=== PATIENT | male | born 1990 | race Caucasian/White ===

== ENCOUNTER 2017-02-05 06:17 | Emergency (ER) | payer OTHER ==
[2017-02-05 06:49] VITALS: TEMP 98.6
[2017-02-05] MEDS ORDERED: RX INFO: IV CONTRAST WAS GIVEN 1 EACH MISC MISCELLANE PRN (08:26)
--- NOTE | 2017-02-05 09:00 | ED ---
Abdominal Pain HPI - General Chief Complaint: Abdominal Pain Stated Complaint: pelvic, leg pain/numbness Time Seen by Provider: 02/05/17 08:08 Source: patient, RN notes reviewed Mode of arrival: ambulatory Limitations: no limitations - History of Present Illness Initial Comments: 26-year-old male presents emergency Department chief complaint of abdominal pain. Patient had ongoing sore last year diagnosed with colitis. Patient states that he does see a GI physician in [place] because he was going to school at [employer]. Patient states that he is scheduled for colonoscopy and upper GI scope but is not for another 2 months. Patient's concerned about increasing symptoms. Patient has had hematuria in the past when his symptoms first started no recent episodes. Patient denies any vomiting states he is nauseated. Denies any dysuria or urinary frequency. Patient has fever, chills , chest pain or shortness breath. Patient states that he does have multiple family members diagnosed with colitis, ulcerative colitis and colon cancer. Patient is concerned. - Related Data Home Medications Medication Instructions Recorded Confirmed Ibuprofen [Advil] 600 mg PO DAILY PRN 02/05/17 02/05/17 Indomethacin 25 mg PO TID PRN 02/05/17 02/05/17 Multivitamins, Thera [Multivitamin 1 tab PO DAILY 02/05/17 02/05/17 (formulary)] Previous Rx's Medication Instructions Recorded Acetaminophen-Codeine 300-30mg 1 tab PO Q4H PRN #20 tablet 02/05/17 [Tylenol #3] Dicyclomine [Bentyl] 20 mg PO TID #30 tablet 02/05/17 Allergies Allergy/AdvReac Type Severity Reaction Status Date / Time No Known Allergies Allergy Verified 02/05/17 07:51 Review of Systems ROS Statement: Those systems with pertinent positive or pertinent negative responses have been documented in the HPI. ROS Other: All systems not noted in ROS Statement are negative. Past Medical History Past Medical History: No Reported History Additional Past Medical History / Comment(s): COLITIS History of Any Multi-Drug Resistant Organisms: None Reported Past Surgical History: No Surgical Hx Reported Past Psychological History: No Psychological Hx Reported Smoking Status: Never smoker Past Alcohol Use History: None Reported Past Drug Use History: None Reported General Exam Limitations: no limitations General appearance: alert, in no apparent distress Neck exam: Present: normal inspection, full ROM. Absent: tenderness, meningismus, lymphadenopathy Respiratory exam: Present: normal lung sounds bilaterally. Absent: respiratory distress, wheezes, rales, rhonchi, stridor Cardiovascular Exam: Present: regular rate, normal rhythm, normal heart sounds. Absent: systolic murmur, diastolic murmur, rubs, gallop, clicks GI/Abdominal exam: Present: soft, tenderness (Mild left lower quadrant tenderness), normal bowel sounds. Absent: distended, guarding, rebound, rigid Back exam: Absent: CVA tenderness (R), CVA tenderness (L) Neurological exam: Present: alert, oriented X3, CN II-XII intact Skin exam: Present: warm, dry, intact, normal color. Absent: rash Course Vital Signs 02/05/17 06:23 Temperature 98.6 F Pulse Rate 56 L Respiratory 16 Rate Blood Pressure 133/58 O2 Sat by Pulse 98 Oximetry Medical Decision Making - Medical Decision Making 26-year-old male present emergency department for abdominal pain. Patient CT is unchanged from prior CT. Patient has evidence of inflammatory changes. Patient will be discharged follow-up with local GI or his GI that's in [place]. Patient we discharged with Bentyl, pain medication return parameters discussed. - Lab Data Result diagrams: 02/05/17 08:22 02/05/17 08:22 Lab Results 02/05/17 02/05/17 02/05/17 Range/Units 08:22 08:22 08:52 WBC 5.5 (3.8-10.6) k/uL RBC 5.23 (4.30-5.90) m/uL Hgb 16.4 (13.0-17.5) gm/dL Hct 46.1 (39.0-53.0) % MCV 88.1 (80.0-100.0) fL MCH 31.4 (25.0-35.0) pg MCHC 35.7 (31.0-37.0) g/dL RDW 12.3 (11.5-15.5) % Plt Count 227 (150-450) k/uL Neutrophils % 42 % Lymphocytes % 34 % Monocytes % 9 % Eosinophils % 10 % Basophils % 1 % Neutrophils # 2.3 (1.3-7.7) k/uL Lymphocytes # 1.9 (1.0-4.8) k/uL Monocytes # 0.5 (0-1.0) k/uL Eosinophils # 0.6 (0-0.7) k/uL Basophils # 0.1 (0-0.2) k/uL Sodium 142 (137-145) mmol/L Potassium 4.1 (3.5-5.1) mmol/L Chloride 105 (98-107) mmol/L Carbon Dioxide 25 (22-30) mmol/L Anion Gap 12 mmol/L BUN 16 (9-20) mg/dL Creatinine 1.07 (0.66-1.25) mg/dL Est GFR (MDRD) Af Amer >60 (>60 ml/min/1.73 sqM) Est GFR (MDRD) Non-Af >60 (>60 ml/min/1.73 sqM) Glucose 87 (74-99) mg/dL Calcium 9.9 (8.4-10.2) mg/dL Total Bilirubin 1.5 H (0.2-1.3) mg/dL AST 20 (17-59) U/L ALT 33 (21-72) U/L Alkaline Phosphatase 64 (38-126) U/L Total Protein 7.3 (6.3-8.2) g/dL Albumin 4.6 (3.5-5.0) g/dL Amylase 78 (30-110) U/L Lipase 100 (23-300) U/L Urine Color Yellow Urine Appearance Clear (Clear) Urine pH 6.5 (5.0-8.0) Ur Specific [place] 1.012 (1.001-1.035) Urine Protein Negative (Negative) Urine Glucose (UA) Negative (Negative) Urine Ketones Negative (Negative) Urine Blood Negative (Negative) Urine Nitrite Negative (Negative) Urine Bilirubin Negative (Negative) Urine Urobilinogen <2.0 (<2.0) mg/dL Ur Leukocyte Esterase Negative (Negative) Disposition Clinical Impression: Abdominal pain, Colitis Disposition: HOME SELF-CARE Condition: Stable Instructions: Abdominal Pain (ED) Additional Instructions: Please return to the Emergency Department if symptoms worsen or any other concerns. Prescriptions: Acetaminophen-Codeine 300-30mg [Tylenol #3] 1 tab PO Q4H PRN #20 tablet PRN Reason: pain Dicyclomine [Bentyl] 20 mg PO TID #30 tablet Referrals: None,Stated [Primary Care Provider] - 1-2 days Wilma Reynoso MD [STAFF PHYSICIAN] - 1-2 days
[2017-02-05 09:02] LABS: Basophils # (A) 0.1 k/uL (0-0.2); Basophils % (A) 1 %; CH 32.3; CHCM 36.8; Eosinophils # (A) 0.6 k/uL (0-0.7); Eosinophils % (A) 10 %; HCT 46.1 % (39.0-53.0); HDW 2.74; HGB 16.4 gm/dL (13.0-17.5); Luc # (Auto) 0.17; Luc % (Auto) 3; Lymphocytes # (A) 1.9 k/uL (1.0-4.8); Lymphocytes % (A) 34 %; MCH 31.4 pg (25.0-35.0); MCHC 35.7 g/dL (31.0-37.0); MCV 88.1 fL (80.0-100.0); Mean Platelet Volume 7.2; Monocytes # (A) 0.5 k/uL (0-1.0); Monocytes % (A) 9 %; Neutrophils # (A) 2.3 k/uL (1.3-7.7); Neutrophils % (A) 42 %; RBC 5.23 m/uL (4.30-5.90); RDW 12.3 % (11.5-15.5); WBC 5.5 k/uL (3.8-10.6)
[2017-02-05 09:07] LABS: Appearance,Urine Clear (Clear); Bilirubin,Urine Negative (Negative); Glucose,Urine (UA) Negative (Negative); Ketones,Urine Negative (Negative); Leukocyte Esterase,Urine Negative (Negative); Nitrite,Urine Negative (Negative); PH, Urine 6.5 (5.0-8.0); Protein,Urine Negative (Negative); Specific Gravity,Urine 1.012 (1.001-1.035); UA Billing (MACRO vs. MICRO) CHEM; Urobilinogen,Urine <2.0 mg/dL (<2.0)
[2017-02-05 09:13] LABS: ALT 33 U/L (21-72); AST 20 U/L (17-59); Alkaline Phosphatase 64 U/L (38-126); Amylase 78 U/L (30-110); Anion Gap 12 mmol/L; Blood Urea Nitrogen 16 mg/dL (9-20); Calcium 9.9 mg/dL (8.4-10.2); Carbon Dioxide 25 mmol/L (22-30); Chloride 105 mmol/L (98-107); Glucose 87 mg/dL (74-99); Non-African American GFR(MDRD) >60 (>60 ml/min/1.73 sqM); Potassium 4.1 mmol/L (3.5-5.1); Sodium 142 mmol/L (137-145); Total Bilirubin 1.5 mg/dL (0.2-1.3); Total Protein 7.3 g/dL (6.3-8.2)
--- NOTE | 2017-02-05 10:00 | CT ---
EXAMINATION TYPE: CT abdomen pelvis w con DATE OF EXAM: 02/05/2017 9:23 AM COMPARISON: 08/18/2016 HISTORY: 86-year-old male with pelvic pain, Leg numbness TECHNIQUE: Contiguous axial scanning of the abdomen and pelvis following administration of 100 ml Omn ipaque 300 IV contrast. Delayed images through the kidneys and coronal/sagittal reconstructions perf ormed. CT DLP: 525.00 mGycm Automated exposure control for dose reduction was used. FINDINGS: The heart is normal size without pericardial effusion. Lung bases are clear without pleural effusion. Small amount of focal fat along the anterior falciform ligament. Portal venous system is patent. No b iliary ductal dilatation. Gallbladder, adrenal glands, kidneys, spleen, and pancreas appear within normal limits. Tiny fatty umbilical hernia. Scattered nonenlarged and a few portal and mildly enlarged mesenteric lymph nodes are present measuri ng up to 9 mm, coronal image 28 and are unchanged from 08/18/2016. There is scattered mild to moderate stool without pericolonic inflammatory change. No dilated small bowel, free fluid, or free air. Portions of a normal air-filled appendix are visuali zed Bladder is underdistended. No abnormal fluid collection in the pelvis and no pelvic lymphadenopathy s een. Bones: Mild superior femoral head neck junction osseous excrescences with some fibrocystic change at the superior femoral head neck junction on the right. No osseous destructive process. IMPRESSION: 1. NO ACUTE INFLAMMATORY PROCESS IDENTIFIED IN THE ABDOMEN OR PELVIS TO EXPLAIN THE PATIENT'S SYMPTOM S. 2. SOME SCATTERED NONENLARGED AND BORDERLINE TO MILDLY ENLARGED MESENTERIC LYMPH NODES ARE UNCHANGED FROM 08/18/2016 SUGGESTING A CHRONIC POSTINFLAMMATORY ETIOLOGY. 3. 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 CORRELATE FOR ANY CHRONIC RIGHT HIP PAIN.
[2017-02-05 10:50] VITALS: BP 113/69; PULSE 62; RESP 18
== END 2017-02-05 10:50 | disposition home or self-care (01) ==
LOC: EC 06:17
DX: K52.9 Noninfective gastroenteritis and colitis, unspecified (principal); Z79.899 Other long term (current) drug therapy; Z83.79 Family history of other diseases of the digestive system
CPT/HCPCS: 36415; 80053; 82150; 83690; 85025; 81003; 74177; 99284; Q9967

== ENCOUNTER 2017-02-14 22:38 | Emergency (ER) | payer OTHER ==
[2017-02-14 22:56] VITALS: TEMP 98
--- NOTE | 2017-02-14 23:50 | ED ---
Abdominal Pain HPI - General Chief Complaint: Abdominal Pain Stated Complaint: Abd Pain Time Seen by Provider: 02/14/17 23:21 Source: patient Mode of arrival: ambulatory Limitations: no limitations - History of Present Illness Initial Comments: Plan about abdominal pain some blood in stool and moves his bowels every 5-6 days complaining about abdominal pain in different parts of the abdomen mostly starts from the right side of the abdomen and it sometimes moves to the left lower quadrant. Been feeling quite tired for the last one month seen a GI doctor in [place] and he is scheduled for a scope in March sometime. He was seen in the [facility], he had a CT of the abdomen done and he stating he do not want another CT of the abdomen and though he passed out today in his driveway for about 2 minutes he denies any injury he passed out when he parked his car there was no car accident or U didn't fall there is no injury and he also made it very clear that she do not want to have a head CT done. System is positive for chills chest pain off-and-on - Related Data Home Medications Medication Instructions Recorded Confirmed Ibuprofen [Advil] 600 mg PO DAILY PRN 02/05/17 02/05/17 Indomethacin 25 mg PO TID PRN 02/05/17 02/05/17 Multivitamins, Thera [Multivitamin 1 tab PO DAILY 02/05/17 02/05/17 (formulary)] Previous Rx's Medication Instructions Recorded Acetaminophen-Codeine 300-30mg 1 tab PO Q4H PRN #20 tablet 02/05/17 [Tylenol #3] Dicyclomine [Bentyl] 20 mg PO TID #30 tablet 02/05/17 Allergies Allergy/AdvReac Type Severity Reaction Status Date / Time No Known Allergies Allergy Verified 02/14/17 22:56 Review of Systems ROS Statement: Those systems with pertinent positive or pertinent negative responses have been documented in the HPI. ROS Other: All systems not noted in ROS Statement are negative. Past Medical History Past Medical History: No Reported History Additional Past Medical History / Comment(s): COLITIS History of Any Multi-Drug Resistant Organisms: None Reported Past Surgical History: No Surgical Hx Reported Past Psychological History: No Psychological Hx Reported Smoking Status: Never smoker Past Alcohol Use History: None Reported Past Drug Use History: None Reported General Exam - General Exam Comments Initial Comments: General: The patient is awake and alert, in no distress, and does not appear acutely ill. Skin: Skin is warm and dry and no rashes or lesions are noted. Eye: Pupils are equal, round and reactive to light, extra-ocular movements are intact; there is normal conjunctiva bilaterally. Ears, nose, mouth and throat: There are moist mucous membranes and no oral lesions. Neck: The neck is supple, there is no tenderness Cardiovascular: There is a regular rate and rhythm. No murmur, rub or gallop is appreciated. Respiratory: To auscultation bilateral, no wheezing no rhonchi no distress respiratory alanis noticed Gastrointestinal: Slightly tender in the right lower quadrant area positive bowel sounds also tender in the left lower quadrant area no guarding no rebounds Back: There is no tenderness to palpation in the midline. There is no obvious deformity. Musculoskeletal: Normal ROM, no tenderness, There is no pedal edema. There is no calf tenderness or swelling. No cords were appreciated. Neurological: CN II-XII intact, Cranial nerves III through XII are intact. There are no obvious motor or sensory deficits. Coordination appears grossly intact. Speech is normal. Psychiatric: Cooperative, appropriate mood & affect, normal judgment. Limitations: no limitations Course Vital Signs 02/14/17 22:52 Temperature 98 F Pulse Rate 71 Respiratory 16 Rate Blood Pressure 140/74 O2 Sat by Pulse 98 Oximetry As well as chest pain is concerned his troponin is normal chest x-ray is normal and the we watched him there was no syncope his GCS is 15 there is no neuro deficits he do not want to do any imaging of his brain or his abdomen like CT of the brain her CT of the abdomen today encouraged him to come back if symptoms get worse or recur Medical Decision Making - Medical Decision Making Patient was in by her GI doctor and [facility] and he plans to get his scopes upper and lower scopes there, his blood work looks exceptionally good today CBC, CMP, UA and the x-rays are within normal range I explained those to him he understands that continued follow-up with her GI doctor - Lab Data Result diagrams: 02/14/17 23:50 02/14/17 23:50 Lab Results 02/14/17 02/14/17 02/14/17 Range/Units 23:50 23:50 23:50 WBC 8.8 (3.8-10.6) k/uL RBC 5.14 (4.30-5.90) m/uL Hgb 16.0 (13.0-17.5) gm/dL Hct 45.8 (39.0-53.0) % MCV 89.2 (80.0-100.0) fL MCH 31.1 (25.0-35.0) pg MCHC 34.9 (31.0-37.0) g/dL RDW 12.3 (11.5-15.5) % Plt Count 224 (150-450) k/uL Neutrophils % 55 % Lymphocytes % 28 % Monocytes % 8 % Eosinophils % 6 % Basophils % 1 % Neutrophils # 4.9 (1.3-7.7) k/uL Lymphocytes # 2.4 (1.0-4.8) k/uL Monocytes # 0.7 (0-1.0) k/uL Eosinophils # 0.5 (0-0.7) k/uL Basophils # 0.1 (0-0.2) k/uL Sodium 142 (137-145) mmol/L Potassium 4.2 (3.5-5.1) mmol/L Chloride 106 (98-107) mmol/L Carbon Dioxide 25 (22-30) mmol/L Anion Gap 11 mmol/L BUN 20 (9-20) mg/dL Creatinine 1.10 (0.66-1.25) mg/dL Est GFR (MDRD) Af Amer >60 (>60 ml/min/1.73 sqM) Est GFR (MDRD) Non-Af >60 (>60 ml/min/1.73 sqM) Glucose 86 (74-99) mg/dL Calcium 10.3 H (8.4-10.2) mg/dL Total Bilirubin 0.6 (0.2-1.3) mg/dL AST 21 (17-59) U/L ALT 43 (21-72) U/L Alkaline Phosphatase 77 (38-126) U/L Troponin I <0.012 (0.000-0.034) ng/mL C-Reactive Protein <5.0 (<10.0) mg/L Total Protein 7.3 (6.3-8.2) g/dL Albumin 4.7 (3.5-5.0) g/dL Amylase 81 (30-110) U/L Lipase 196 (23-300) U/L Urine Color Urine Appearance (Clear) Urine pH (5.0-8.0) Ur Specific [place] (1.001-1.035) Urine Protein (Negative) Urine Glucose (UA) (Negative) Urine Ketones (Negative) Urine Blood (Negative) Urine Nitrite (Negative) Urine Bilirubin (Negative) Urine Urobilinogen (<2.0) mg/dL Ur Leukocyte Esterase (Negative) 02/15/17 Range/Units 01:15 WBC (3.8-10.6) k/uL RBC (4.30-5.90) m/uL Hgb (13.0-17.5) gm/dL Hct (39.0-53.0) % MCV (80.0-100.0) fL MCH (25.0-35.0) pg MCHC (31.0-37.0) g/dL RDW (11.5-15.5) % Plt Count (150-450) k/uL Neutrophils % % Lymphocytes % % Monocytes % % Eosinophils % % Basophils % % Neutrophils # (1.3-7.7) k/uL Lymphocytes # (1.0-4.8) k/uL Monocytes # (0-1.0) k/uL Eosinophils # (0-0.7) k/uL Basophils # (0-0.2) k/uL Sodium (137-145) mmol/L Potassium (3.5-5.1) mmol/L Chloride (98-107) mmol/L Carbon Dioxide (22-30) mmol/L Anion Gap mmol/L BUN (9-20) mg/dL Creatinine (0.66-1.25) mg/dL Est GFR (MDRD) Af Amer (>60 ml/min/1.73 sqM) Est GFR (MDRD) Non-Af (>60 ml/min/1.73 sqM) Glucose (74-99) mg/dL Calcium (8.4-10.2) mg/dL Total Bilirubin (0.2-1.3) mg/dL AST (17-59) U/L ALT (21-72) U/L Alkaline Phosphatase (38-126) U/L Troponin I (0.000-0.034) ng/mL C-Reactive Protein (<10.0) mg/L Total Protein (6.3-8.2) g/dL Albumin (3.5-5.0) g/dL Amylase (30-110) U/L Lipase (23-300) U/L Urine Color Yellow Urine Appearance Clear (Clear) Urine pH 6.5 (5.0-8.0) Ur Specific [place] 1.017 (1.001-1.035) Urine Protein Negative (Negative) Urine Glucose (UA) Negative (Negative) Urine Ketones Negative (Negative) Urine Blood Negative (Negative) Urine Nitrite Negative (Negative) Urine Bilirubin Negative (Negative) Urine Urobilinogen <2.0 (<2.0) mg/dL Ur Leukocyte Esterase Negative (Negative) Disposition Clinical Impression: Abdominal pain, Syncope, Chest pain Disposition: HOME SELF-CARE Condition: Good Instructions: Abdominal Pain (ED) Additional Instructions: Was advised to increase the fluid intake and make sure he doesn't miss any meals to avoid any hypoglycemia or hypovolemia. He understood Referrals: Nonstaff,Physician [Primary Care Provider] - 1-2 days
[2017-02-15 00:07] LABS: Basophils # (A) 0.1 k/uL (0-0.2); Basophils % (A) 1 %; CH 32.3; CHCM 36.4; Eosinophils # (A) 0.5 k/uL (0-0.7); Eosinophils % (A) 6 %; HCT 45.8 % (39.0-53.0); HDW 2.64; Luc # (Auto) 0.18; Luc % (Auto) 2; Lymphocytes # (A) 2.4 k/uL (1.0-4.8); Lymphocytes % (A) 28 %; MCH 31.1 pg (25.0-35.0); MCHC 34.9 g/dL (31.0-37.0); MCV 89.2 fL (80.0-100.0); Mean Platelet Volume 7.6; Monocytes # (A) 0.7 k/uL (0-1.0); Monocytes % (A) 8 %; Neutrophils # (A) 4.9 k/uL (1.3-7.7); Neutrophils % (A) 55 %; RBC 5.14 m/uL (4.30-5.90); RDW 12.3 % (11.5-15.5); WBC 8.8 k/uL (3.8-10.6); WBC (Perox) 8.33
[2017-02-15 00:18] LABS: ALT 43 U/L (21-72); AST 21 U/L (17-59); Alkaline Phosphatase 77 U/L (38-126); Amylase 81 U/L (30-110); Anion Gap 11 mmol/L; Blood Urea Nitrogen 20 mg/dL (9-20); C Reactive Protein <5.0 mg/L (<10.0); Calcium 10.3 mg/dL (8.4-10.2); Carbon Dioxide 25 mmol/L (22-30); Chloride 106 mmol/L (98-107); Glucose 86 mg/dL (74-99); Non-African American GFR(MDRD) >60 (>60 ml/min/1.73 sqM); Potassium 4.2 mmol/L (3.5-5.1); Sodium 142 mmol/L (137-145); Total Bilirubin 0.6 mg/dL (0.2-1.3); Total Protein 7.3 g/dL (6.3-8.2)
--- NOTE | 2017-02-15 00:32 | XR ---
EXAM: XR Chest, 2 Views CLINICAL HISTORY: syncopal episode today, Pain TECHNIQUE: Frontal and lateral views of the chest. COMPARISON: CT abdomen and pelvis from 02/05/17 FINDINGS: Lungs: Unremarkable. No consolidation. Pleural space: Unremarkable. No pneumothorax. Heart: Unremarkable. No cardiomegaly. Mediastinum: Unremarkable. Bones/joints: Unremarkable. IMPRESSION: Normal chest x-rays.
--- NOTE | 2017-02-15 00:33 | XR ---
EXAM: XR Abdomen, 1 View CLINICAL HISTORY: Reason: abdominal pain TECHNIQUE: Frontal supine view of the abdomen/pelvis. COMPARISON: CT abdomen and pelvis from 02/05/17 FINDINGS: Gastrointestinal tract: Unremarkable. No dilation. Bones/joints: Unremarkable. IMPRESSION: Nonspecific bowel gas pattern
[2017-02-15 01:35] LABS: Appearance,Urine Clear (Clear); Bilirubin,Urine Negative (Negative); Glucose,Urine (UA) Negative (Negative); Ketones,Urine Negative (Negative); Leukocyte Esterase,Urine Negative (Negative); Nitrite,Urine Negative (Negative); PH, Urine 6.5 (5.0-8.0); Protein,Urine Negative (Negative); Specific Gravity,Urine 1.017 (1.001-1.035); UA Billing (MACRO vs. MICRO) CHEM; Urobilinogen,Urine <2.0 mg/dL (<2.0)
[2017-02-15 02:51] VITALS: BP 122/65; PULSE 77; RESP 18
== END 2017-02-15 02:51 | disposition home or self-care (01) ==
LOC: EC 22:38
DX: R10.31 Right lower quadrant pain (principal); R10.32 Left lower quadrant pain; R55 Syncope and collapse; R07.9 Chest pain, unspecified; Z87.19 Personal history of other diseases of the digestive system; Z79.899 Other long term (current) drug therapy
CPT/HCPCS: 36415; 71020; 74000; 80053; 81003; 82150; 83690; 84484; 85025; 86140; 99284

== ENCOUNTER 2017-03-24 12:14 | Day surgery (SDC) | payer OTHER ==
[2017-03-24] MEDS ORDERED: LIDOCAINE 1% 20 ML VIAL (10MG/ML) FOR IV START INTRADERMA ONE (12:46)
[2017-03-24] MEDS ORDERED: LACTATED RINGERS 1,000 ML IV ONE (12:47)
[2017-03-24 12:48] VITALS: RESP 16; TEMP 97
[2017-03-24] MEDS ORDERED: PROPOFOL 10 MG/ML 20 ML VIAL IV ONE (12:50)
[2017-03-24] MEDS ORDERED: LIDOCAINE 1% INJ 10MG/ML (20 ML MDV) ONE (12:50)
[2017-03-24] MEDS ORDERED: LACTATED RINGERS 1,000 ML IV SCH (12:54)
--- NOTE | 2017-03-24 12:57 | P.GSHP ---
History of Present Illness H&P Date: 03/24/17 Chief Complaint: GI bleed The 26-year-old male who's had complaints of epigastric dull pain and GI bleed. He presents today for EGD. Past Medical History Past Medical History: No Reported History Additional Past Medical History / Comment(s): COLITIS History of Any Multi-Drug Resistant Organisms: None Reported Past Surgical History: No Surgical Hx Reported Past Psychological History: No Psychological Hx Reported Smoking Status: Never smoker Past Alcohol Use History: None Reported Past Drug Use History: None Reported Medications and Allergies Home Medications Medication Instructions Recorded Confirmed Type Ibuprofen [Advil] 600 mg PO DAILY PRN 02/05/17 03/24/17 History Indomethacin 25 mg PO TID PRN 02/05/17 03/24/17 History Multivitamins, Thera [Multivitamin 1 tab PO DAILY 02/05/17 03/24/17 History (formulary)] Allergies Allergy/AdvReac Type Severity Reaction Status Date / Time No Known Allergies Allergy Verified 02/14/17 22:56 Surgical - Exam Vital Signs Temp Pulse Resp BP Pulse Ox 97 F L 57 L 16 126/73 57 L 03/24/17 12:44 03/24/17 12:44 03/24/17 12:44 03/24/17 12:44 03/24/17 12:44 - General well developed, no distress - Eyes PERRL - ENT normal pinna - Neck no masses - Respiratory normal expansion - Cardiovascular Rhythm: regular - Abdomen Abdomen: soft, non tender Assessment and Plan Plan: Epigastric dull pain, GI bleed. We'll perform EGD.
--- NOTE | 2017-03-24 13:06 | P.OP ---
Date of Procedure: 03/24/17 Preoperative Diagnosis: Epigastric abdominal pain Postoperative Diagnosis: Mild antral gastritis Small hiatal hernia Minimal esophagitis Procedure(s) Performed: EGD Implants: Anesthesia: MAC Surgeon: Holden Sepulveda Pathology: other (Antrum, esophagus) Condition: stable Disposition: PACU Indications for Procedure: Operative Findings: Description of Procedure: The patient's placed on the endoscopy table lateral position. He received IV sedation. The gastroscope placed oropharynx passed in the esophagus and into the stomach. The scope was then placed through the pylorus. First and second portion of the duodenum appeared normal. Scope was then brought back and the antrum and this appeared mildly inflamed. A biopsies was performed. Scope was then brought back and the stomach and the remainder some appeared normal. Scope was unretroflexed and remainder stomach was normal. There was a small hiatal hernia seen. The GE junction was at 40 cms. The distal esophagus appeared minimally inflamed a biopsies performed. The proximal esophagus Appeared Normal. Scope was withdrawn for patient.
[2017-03-24 13:42] VITALS: BP 113/69; PULSE 55
== END 2017-03-24 14:57 | disposition home or self-care (01) ==
LOC: ORWHC2ENDO 12:14
PROVIDERS: ATTEND Surgery
DX: K29.50 Unspecified chronic gastritis without bleeding (principal); K20.9 Esophagitis, unspecified; K44.9 Diaphragmatic hernia without obstruction or gangrene; Z87.19 Personal history of other diseases of the digestive system; Z79.899 Other long term (current) drug therapy
CPT/HCPCS: 88305; 88342; 43239; J2001; J2704

== ENCOUNTER → 2017-03-25 | Outpatient (CLI) | payer OTHER ==
--- NOTE | 2017-03-25 11:09 | FL ---
EXAMINATION TYPE: FL small bowel follow through , DATE OF EXAM ORDERED: 03/25/2017 HISTORY: R10.30 lower abdominal pain. COMPARISON: None. FINDINGS: A solution coordinator film was unremarkable. Small bowel caliber is normal mucosal frontal fold pattern is normal. The terminal ileum was spotted and is unremarkable. IMPRESSION: NORMAL DEDICATED SMALL BOWEL FOLLOW-THROUGH.
== END | disposition home or self-care (01) ==
LOC: RADFLMAIN 08:04
PROVIDERS: ATTEND Internal Medicine Gastroenterology
DX: R10.30 Lower abdominal pain, unspecified (principal)
CPT/HCPCS: 74250

== ENCOUNTER 2017-04-16 15:11 | Emergency (ER) | payer OTHER ==
[2017-04-16 15:43] VITALS: TEMP 97.9
[2017-04-16] MEDS ORDERED: ACET/COD 300 MG/30 MG STARTER PACK 6 TAB BTL PO STA (16:58)
[2017-04-16] MEDS ORDERED: CYCLOBENZAPRINE 10MG STARTER 3 TAB BTL PO STA (16:58)
--- NOTE | 2017-04-16 17:14 | XR ---
EXAMINATION TYPE: XR lumbar spine 2 or 3V DATE OF EXAM: 04/16/2017 COMPARISON: NONE HISTORY: Back pain TECHNIQUE: 3 views FINDINGS: Lumbar vertebra have normal spacing and alignment. Posterior elements are intact. Sacroilia c joints appear normal. IMPRESSION: Negative lumbar spine exam. No fracture.
--- NOTE | 2017-04-16 17:30 | ED ---
Back Pain HPI - General Chief Complaint: Back Pain/Injury Stated Complaint: Back Injury Time Seen by Provider: 04/16/17 16:52 Source: patient Limitations: no limitations - Related Data Home Medications Medication Instructions Recorded Confirmed Ibuprofen [Advil] 600 mg PO DAILY PRN 02/05/17 03/24/17 Indomethacin 25 mg PO TID PRN 02/05/17 03/24/17 Multivitamins, Thera [Multivitamin 1 tab PO DAILY 02/05/17 03/24/17 (formulary)] Previous Rx's Medication Instructions Recorded Acetaminophen-Codeine 300-30mg 1 tab PO Q4H PRN #20 tablet 02/05/17 [Tylenol #3] Dicyclomine [Bentyl] 20 mg PO TID #30 tablet 02/05/17 Cyclobenzaprine [Flexeril] 10 mg PO TID #20 tab 04/16/17 HYDROcodone/APAP 10-325MG [[place] 1 tab PO Q6H PRN #10 tab 04/16/17 10-325] Allergies Allergy/AdvReac Type Severity Reaction Status Date / Time No Known Allergies Allergy Verified 02/14/17 22:56 Review of Systems ROS Statement: Those systems with pertinent positive or pertinent negative responses have been documented in the HPI. ROS Other: All systems not noted in ROS Statement are negative. Past Medical History Past Medical History: No Reported History Additional Past Medical History / Comment(s): COLITIS History of Any Multi-Drug Resistant Organisms: None Reported Past Surgical History: No Surgical Hx Reported Past Psychological History: No Psychological Hx Reported Smoking Status: Never smoker Past Alcohol Use History: None Reported Past Drug Use History: None Reported General Exam Limitations: no limitations Course Vital Signs 04/16/17 04/16/17 15:41 16:59 Temperature 97.9 F Pulse Rate 60 62 Respiratory 20 18 Rate Blood Pressure 114/69 117/68 O2 Sat by Pulse 96 98 Oximetry Disposition Clinical Impression: Lumbar back pain Disposition: HOME SELF-CARE Condition: Good Instructions: Acute Low Back Pain (ED) Additional Instructions: Patient is to rest, plenty ice to the back. Return to the emergency department if any alarming signs or symptoms occur. Prescriptions: Cyclobenzaprine [Flexeril] 10 mg PO TID #20 tab HYDROcodone/APAP 10-325MG [[place] 10-325] 1 tab PO Q6H PRN #10 tab PRN Reason: Pain Referrals: Tamika Hopper DO [Primary Care Provider] - 1-2 days Time of Disposition: 17:29
[2017-04-16 17:40] VITALS: BP 128/70; PULSE 69; RESP 16
== END 2017-04-16 17:38 | disposition home or self-care (01) ==
LOC: EC 15:11
DX: M54.5 Low back pain (principal); Z79.899 Other long term (current) drug therapy
CPT/HCPCS: 72100; 99283

== ENCOUNTER 2017-09-27 19:48 | Emergency (ER) | payer OTHER ==
[2017-09-27 20:35] VITALS: BP 117/55; PULSE 69; RESP 18; TEMP 97.7
[2017-09-27] MEDS ORDERED: PROPARACAINE 0.5% OPHTH DROPS 15 ML BTL RIGHT EYE STA (21:51)
--- NOTE | 2017-09-27 22:07 | ED ---
Eye Problem HPI - General Chief complaint: Eye Problems Stated complaint: [facility] /Eye Problem Time Seen by Provider: 09/27/17 21:40 Source: patient, RN notes reviewed Mode of arrival: ambulatory Limitations: no limitations - History of Present Illness Initial comments: This is a 27-year-old male who presents to the emergency department with chief complaint of right eye injury. Patient states that at 7:34 PM this evening he was at work. He states that he had an accidental splash to his right eye of a product inspection supervisor chemical solution. Patient states that he flushed his eye with water for 5 minutes. Patient states that currently his eye is mildly painful; he rates it as 3/10. Denies any vision changes or blurred vision. Denies any other injuries. Denies fever, chills, chest pain, shortness of breath, abdominal pain, nausea or vomiting, constipation or diarrhea, dysuria or hematuria, numbness or tingling, headache. - Related Data Home Medications Medication Instructions Recorded Confirmed Ibuprofen [Advil] 600 mg PO DAILY PRN 02/05/17 03/24/17 Indomethacin 25 mg PO TID PRN 02/05/17 03/24/17 Multivitamins, Thera [Multivitamin 1 tab PO DAILY 02/05/17 03/24/17 (formulary)] Previous Rx's Medication Instructions Recorded Acetaminophen-Codeine 300-30mg 1 tab PO Q4H PRN #20 tablet 02/05/17 [Tylenol #3] Dicyclomine [Bentyl] 20 mg PO TID #30 tablet 02/05/17 Cyclobenzaprine [Flexeril] 10 mg PO TID #20 tab 04/16/17 HYDROcodone/APAP 10-325MG [[place] 1 tab PO Q6H PRN #10 tab 04/16/17 10-325] Allergies Allergy/AdvReac Type Severity Reaction Status Date / Time No Known Allergies Allergy Verified 09/27/17 20:35 Review of Systems ROS Statement: Those systems with pertinent positive or pertinent negative responses have been documented in the HPI. ROS Other: All systems not noted in ROS Statement are negative. Past Medical History Past Medical History: No Reported History Additional Past Medical History / Comment(s): COLITIS History of Any Multi-Drug Resistant Organisms: None Reported Past Surgical History: No Surgical Hx Reported Past Psychological History: No Psychological Hx Reported Smoking Status: Never smoker Past Alcohol Use History: None Reported Past Drug Use History: None Reported General Exam - General Exam Comments Initial Comments: General: Awake and alert, well-developed; in no apparent distress. HEENT: Head atraumatic, normocephalic. Pupils are equal, round and reactive to light. Extraocular movements intact. On fluorescein staining, there is no evidence of corneal abrasion or ulcer. No evidence of foreign body. Neck: Supple. Normal ROM. Cardiovascular: Regular rate and rhythm. No murmurs, rubs or gallops. Chest symmetrical. Respiratory: Lungs clear to auscultation bilaterally. No wheezes, rales or rhonchi. Normal respiratory effort with no use of accessory muscles. Musculoskeletal: Normal ROM, no tenderness bilateral upper and lower extremities. Ambulating normally. Skin: [place], warm and dry without rashes or lesions. Neurological: Alert and oriented x3. CN II-XII grossly intact. Speech is fluent and answers are appropriate. No focal neuro deficits. Psychiatric: Normal mood and affect. No overt signs of depression or anxiety noted. Limitations: no limitations Course Vital Signs 09/27/17 20:31 Temperature 97.7 F Pulse Rate 69 Respiratory 18 Rate Blood Pressure 117/55 O2 Sat by Pulse 98 Oximetry Medical Decision Making - Medical Decision Making This is a 27-year-old male who presents to the emergency department with chief complaint of right eye injury. Patient had product inspection supervisor chemical splash to the right eye. Fluorescein staining revealed no evidence for corneal abrasions or ulcers. Pupils are equal round and reactive to light and extraocular movements are intact. Patient denies any vision changes or blurred vision. He will be discharged home. Return parameters were discussed. He is to follow up this primary care provider. Patient is in agreement with plan and voices understanding. All questions were answered. Disposition Clinical Impression: Chemical insult, eye Disposition: HOME SELF-CARE Condition: Good Instructions: Chemical Eye [place] (ED) Additional Instructions: Please follow up with primary care provider within 1-2 days. Return to emergency department if symptoms should worsen or any concerns arise. Referrals: Tamika Hopper DO [Primary Care Provider] - 1-2 days Time of Disposition: 22:27
== END 2017-09-27 22:33 | disposition home or self-care (01) ==
LOC: EC 19:48
DX: Z77.098 Contact with and (suspected) exposure to other hazardous, chiefly nonmedicinal, chemicals (principal); Z79.899 Other long term (current) drug therapy; Y93.89 Activity, other specified; Y99.0 Civilian activity done for income or pay; Y92.69 Other specified industrial and construction area as the place of occurrence of the external cause
CPT/HCPCS: 99283

== ENCOUNTER 2018-03-24 15:36 | Emergency (ER) | payer SELFPAY ==
[2018-03-24 16:59] LABS: Amorphous Sediment,Urine Few /hpf; Appearance,Urine Cloudy (Clear); Bilirubin,Urine Negative (Negative); Blood,Urine Negative (Negative); Color,Urine Yellow; Glucose,Urine (UA) Negative (Negative); Ketones,Urine Negative (Negative); Leukocyte Esterase,Urine Negative (Negative); Mucus,Urine Rare /hpf; Nitrite,Urine Negative (Negative); PH, Urine 7.5 (5.0-8.0); Protein,Urine Trace (Negative); RBC,Urine 6 /hpf (0-5); Specific Gravity,Urine 1.021 (1.001-1.035); Urobilinogen,Urine <2.0 mg/dL (<2.0)
--- NOTE | 2018-03-24 17:33 | ED ---
Abdominal Pain HPI - General Chief Complaint: Abdominal Pain Stated Complaint: Male Time Seen by Provider: 03/24/18 17:13 Source: patient, RN notes reviewed Mode of arrival: ambulatory Limitations: no limitations - History of Present Illness Initial Comments: This a 27-year-old male presents emergency Department chief complaint of left- sided testicular pain and swelling. Patient states he has a known cyst but states pain and swelling is out of the usual. Patient states the pain radiates up slightly but he has no abdominal pain no left flank. Patient denies any nausea vomiting diarrhea constipation. Denies any penile drainage no dysuria no hematuria. Patient denies any trauma he has not tried any medications for symptoms. - Related Data Home Medications Medication Instructions Recorded Confirmed No Known Home Medications 03/24/18 03/24/18 Allergies Allergy/AdvReac Type Severity Reaction Status Date / Time No Known Allergies Allergy Verified 03/24/18 17:19 Review of Systems ROS Statement: Those systems with pertinent positive or pertinent negative responses have been documented in the HPI. ROS Other: All systems not noted in ROS Statement are negative. Past Medical History Past Medical History: No Reported History Additional Past Medical History / Comment(s): COLITIS History of Any Multi-Drug Resistant Organisms: None Reported Past Surgical History: No Surgical Hx Reported Past Psychological History: No Psychological Hx Reported Smoking Status: Never smoker Past Alcohol Use History: None Reported Past Drug Use History: None Reported General Exam Limitations: no limitations General appearance: alert, in no apparent distress Respiratory exam: Present: normal lung sounds bilaterally. Absent: respiratory distress, wheezes, rales, rhonchi, stridor Cardiovascular Exam: Present: regular rate, normal rhythm, normal heart sounds. Absent: systolic murmur, diastolic murmur, rubs, gallop, clicks GI/Abdominal exam: Present: soft, normal bowel sounds. Absent: distended, tenderness, guarding, rebound, rigid Back exam: Absent: CVA tenderness (R), CVA tenderness (L) Skin exam: Present: warm, dry, intact, normal color. Absent: rash Course Vital Signs 03/24/18 03/24/18 16:38 18:09 Temperature 98.6 F Pulse Rate 73 Respiratory 20 16 Rate Blood Pressure 120/67 O2 Sat by Pulse 99 Oximetry Medical Decision Making - Medical Decision Making 27-year-old male present emergency from for scrotal pain and swelling. Patient has small hydrocele. Patient did have 6 red cells on his urinalysis that he has no pain support kidney stone at this time. Patient localizes pain. Patient 's urine was cultured, GC and chlamydia were added to urinalysis. Patient will follow-up with PCP and neurologist if symptoms persist. - Lab Data Lab Results 03/24/18 Range/Units 16:40 Urine Color Yellow Urine Appearance Cloudy (Clear) Urine pH 7.5 (5.0-8.0) Ur Specific [place] 1.021 (1.001-1.035) Urine Protein Trace H (Negative) Urine Glucose (UA) Negative (Negative) Urine Ketones Negative (Negative) Urine Blood Negative (Negative) Urine Nitrite Negative (Negative) Urine Bilirubin Negative (Negative) Urine Urobilinogen <2.0 (<2.0) mg/dL Ur Leukocyte Esterase Negative (Negative) Urine RBC 6 H (0-5) /hpf Amorphous Sediment Few H (None) /hpf Urine Mucus Rare H (None) /hpf Disposition Clinical Impression: Hydrocele, Testicular pain Disposition: HOME SELF-CARE Condition: Stable Instructions: Hydrocele (ED), Testicle Pain (ED) Additional Instructions: Please return to the Emergency Department if symptoms worsen or any other concerns. Is patient prescribed a controlled substance at d/c from ED?: No Referrals: Tamika Hopper DO [Primary Care Provider] - 1-2 days Alden Baldwin MD [STAFF PHYSICIAN] - 1-2 days Time of Disposition: 18:33
--- NOTE | 2018-03-24 18:30 | US ---
EXAMINATION TYPE: US scrotum with doppler. Grayscale and color Doppler Duplex imaging performed of t shanta scrotum. DATE OF EXAM: 03/24/2018 COMPARISON: NONE CLINICAL HISTORY: Pain. Left testicle pain x 3 days. No injury. Patient states having a hx of left epi cyst. EXAM MEASUREMENTS: TESTICLES: Right Testicle: 4.0 x 3.5 x 2.9 cm Left Testicle: 3.7 x 3.4 x 2.8 cm EPIDIDYMIS HEAD: Right Epididymis: 0.7 x 1.0 x 0.7 cm Left Epididymis: 0.9 x 0.8 x 0.7 cm Doppler performed to assess for testicular vascularity; good bilateral color flow and waveforms are s een. There is no evidence of testicular torsion. Presence of hydroceles: small right Presence of varicoceles: no Left epididymal head cyst- 0.4 x 0.3 x 0.3 cm IMPRESSION: No evidence of testicular torsion or mass. Small right hydrocele.
[2018-03-24 19:31] VITALS: BP 127/70; PULSE 88; RESP 18; TEMP 98.3
[2018-03-25 13:34] LABS: C. trachomatis,PCR Negative (Neg,Equiv); Chlamydia trachomatis Source Urine; N. gonorrhoeae,PCR Negative (Neg,Equiv); Neisseria Source Urine
== END 2018-03-24 19:20 | disposition home or self-care (01) ==
LOC: EC 15:36
DX: N43.3 Hydrocele, unspecified (principal); N50.812 Left testicular pain
CPT/HCPCS: 76870; 81001; 87086; 87491; 87591; 93975; 99284

== ENCOUNTER 2018-04-10 15:05 | Emergency (ER) | payer OTHER ==
[2018-04-10 15:24] VITALS: BP 120/53; PULSE 56; RESP 18; TEMP 97.8
--- NOTE | 2018-04-10 15:45 | ED ---
Back Pain HPI - General Source: patient, RN notes reviewed Limitations: no limitations <Neda Earl - Last Filed: 04/10/18 16:39> <Maia Welch - Last Filed: 04/11/18 21:45> - General Chief Complaint: Back Pain/Injury Stated Complaint: Back Pain Time Seen by Provider: 04/10/18 15:35 - History of Present Illness Initial Comments: This is a 27-year-old male who presents to the emergency department with chief complaint of back pain. Patient states that this morning he was stretching. He states that he was "stretching so hard" that he felt a sudden sharp pain in his upper thoracic spine. He states that a few years ago he had an injury to his upper back but was never evaluated for it. He states he believes that he herniated a disc but that it healed on its own. He states that the pain he feels now is similar to the pain he had in the past. Denies any neck or lumbar spine pain. Denies any falls, other injuries or trauma. Denies saddle paresthesias or loss of bladder or bowel injury. Denies numbness or tingling. Denies fevers or chills, chest pain or shortness of breath, abdominal pain, nausea or vomiting or dizziness or headache. (Neda Earl) - Related Data Home Medications Medication Instructions Recorded Confirmed Ibuprofen [Motrin] 800 mg PO TID 04/10/18 04/10/18 Allergies Allergy/AdvReac Type Severity Reaction Status Date / Time No Known Allergies Allergy Verified 04/10/18 15:20 Review of Systems ROS Other: All systems not noted in ROS Statement are negative. <Neda Earl - Last Filed: 04/10/18 16:39> ROS Other: All systems not noted in ROS Statement are negative. <Maia Welch - Last Filed: 04/11/18 21:45> ROS Statement: Those systems with pertinent positive or pertinent negative responses have been documented in the HPI. Past Medical History Past Medical History: No Reported History Additional Past Medical History / Comment(s): COLITIS, epidydimitis, joint pain History of Any Multi-Drug Resistant Organisms: None Reported Past Surgical History: No Surgical Hx Reported Additional Past Surgical History / Comment(s): colonoscopy Past Psychological History: No Psychological Hx Reported Smoking Status: Never smoker Past Alcohol Use History: None Reported Past Drug Use History: None Reported <Neda Earl - Last Filed: 04/10/18 16:39> General Exam Limitations: no limitations Back exam: Present: normal inspection, full ROM, paraspinal tenderness (right thoracic), vertebral tenderness (level of T3-T5) <Neda Earl - Last Filed: 04/10/18 16:39> <Maia Welch - Last Filed: 04/11/18 21:45> - General Exam Comments Initial Comments: General: Awake and alert, well-developed; in no apparent distress. Lying comfortably in ED stretcher. HEENT: Head atraumatic, normocephalic. Pupils are equal, round and reactive to light. Extraocular movements intact. Oropharynx moist without erythema or exudate. Neck: Supple. Normal ROM. Cardiovascular: Regular rate and rhythm. No murmurs, rubs or gallops. Chest symmetrical. Pedal and posterior tibial pulses are 2+ equal and palpable bilaterally. Respiratory: Lungs clear to auscultation bilaterally. No wheezes, rales or rhonchi. Normal respiratory effort with no use of accessory muscles. Musculoskeletal: Normal ROM, no tenderness bilateral upper and lower extremities. Ambulating normally. Skin: [place], warm and dry without rashes or lesions. Neurological: Alert and oriented x3. CN II-XII grossly intact. Speech is fluent and answers are appropriate. No focal neuro deficits. Psychiatric: Normal mood and affect. No overt signs of depression or anxiety noted. (Neda Earl) Vital Signs 04/10/18 15:20 Temperature 97.8 F Pulse Rate 56 L Respiratory 18 Rate Blood Pressure 120/53 O2 Sat by Pulse 100 Oximetry Medical Decision Making - Radiology Data Radiology results: report reviewed <Neda Earl - Last Filed: 04/10/18 16:39> <Maia Welch - Last Filed: 04/11/18 21:45> - Medical Decision Making This is a 27-year-old male who presents to the emergency department with chief complaint of thoracic back pain. Patient states that he was stretching this morning and had sudden pain in the thoracic spine. Patient reports tenderness in the area of T3 to T5. There is mild tenderness on palpation of this area. Denies any falls, injuries or trauma. Denies saddle paresthesias or loss of bladder or bowel function. Denies lumbar or neck pain. Patient has normal range of motion and is ambulating normally. X-ray of the thoracic spine revealed no acute abnormalities. Patient states that he already takes ibuprofen 800 at home. I offered to prescribe muscle relaxers to help with symptoms, however patient declines. Vital signs are stable and he is in no acute distress. He will be discharged home at this time. All questions were answered. (Neda Earl) The patient was seen and evaluated independently by the mid-level provider. I was available in the emergency department for consultation but was not asked to evaluate this patient. I agree with the mid-level provider's evaluation and treatment of this patient as documented in the note. (Maia Welch) - Radiology Data X-ray impression: Normal thoracic spine. No change. (Neda Earl) Disposition Is patient prescribed a controlled substance at d/c from ED?: No Time of Disposition: 16:43 <Neda Earl - Last Filed: 04/10/18 16:39> <Maia Welch - Last Filed: 04/11/18 21:45> Clinical Impression: Thoracic back pain Disposition: HOME SELF-CARE Condition: Good Instructions: Thoracic Back Strain (ED) Additional Instructions: Please follow up with primary care provider within 1-2 days. Return to emergency department if symptoms should worsen or any concerns arise. Referrals: Tamika Hopper DO [Primary Care Provider] - 1-2 days
--- NOTE | 2018-04-10 16:31 | XR ---
EXAMINATION TYPE: XR thoracic spine complete DATE OF EXAM: 04/10/2018 COMPARISON: 02/24/2014 HISTORY: Back pain TECHNIQUE: 3 views FINDINGS: Thoracic vertebra have normal spacing and alignment. There is no paraspinal mass. Posterior elements are intact. IMPRESSION: Normal thoracic spine. No change.
== END 2018-04-10 16:50 | disposition home or self-care (01) ==
LOC: EC 15:05
DX: M54.6 Pain in thoracic spine (principal); Z79.1 Long term (current) use of non-steroidal anti-inflammatories (NSAID)
CPT/HCPCS: 72072; 99283